=== PATIENT | male | born 1985 | race Caucasian/White ===

== ENCOUNTER 2019-05-09 00:23 | Emergency (ER) | payer OTHER ==
--- NOTE | 2019-05-13 17:34 | EKG ---
Test Reason : Blood Pressure : / mmHG Vent. Rate : 068 BPM Atrial Rate : 068 BPM P-R Int : 144 ms QRS Dur : 080 ms QT Int : 376 ms P-R-T Axes : 035 029 017 degrees QTc Int : 399 ms Normal sinus rhythm Normal ECG Confirmed by ODELL FERNANDEZ M.D. ([id number]), supervising editor news reel ARLENE BOURGEOIS ([id number]) on 05/13/2019 5:33:55 PM Referred By: REBECCA Confirmed By:ODELL FERNANDEZ M.D.
== END 2019-05-09 00:57 | disposition home or self-care (01) ==
LOC: ERS 00:23 → EEVIPCON 00:23 → ERS 00:57
DX: T75.4XXA Electrocution, initial encounter (principal); J45.909 Unspecified asthma, uncomplicated
CPT/HCPCS: 93005

== ENCOUNTER 2020-04-20 10:55 | Emergency (ER) | payer OTHER ==
[2020-04-20 11:36] LABS: #Eosinphils 0.4 thou/uL (0.0-0.7); #Lymphocytes 2.4 thou/uL (1.20-3.40); #Monocytes 0.6 thou/uL (0.11-0.59); #Neutrophils 4.5 thou/uL (1.40-6.50); %Basophils 0.5 % (0.0-1.0); %Eosinophils 4.9 % (0.0-10.0); %Lymphocytes 30.6 % (21.0-51.0); Hemoglobin 14.8 g/dL (14.0-18.0); Mean Corpuscular Hemoglobin 32.4 pg (27.0-31.0); Mean Corpuscular Volume 92.7 fL (78.0-98.0); Mean Platelet Volume 6.5 fL (7.4-10.4); Platelet Count 294 thou/uL (130-400); RBC Distribution Width 11.3 % (11.5-14.5); Red Blood Cell (RBC) Count 4.57 mill/uL (4.70-6.10)
[2020-04-20 11:58] LABS: ALT (SGPT) 29 U/L (8-55); AST (SGOT) 21 U/L (5-34); Albumin 4.8 g/dL (3.5-5.0); Alkaline Phosphatase 73 U/L (40-110); Anion Gap 16 mmol/L (10-20); BUN (Urea Nitrogen) 18 mg/dL (8.9-20.6); Bilirubin, Total 0.6 mg/dL (0.2-1.2); CK (CPK) 214 U/L (30-200); Calc. Creatinine Clearance 0 mL/min (70-130); Calcium 9.3 mg/dL (7.8-10.44); Carbon Dioxide 27 mmol/L (22-29); Chloride 103 mmol/L (98-107); Glucose 77 mg/dL (70-105); Lipase 23 U/L (8-78); Potassium 3.7 mmol/L (3.5-5.1); Protein, Total 7.8 g/dL (6.0-8.3); Sodium 142 mmol/L (136-145)
--- NOTE | 2020-04-20 12:03 | RAD ---
PORTABLE CHEST: Date: 04/20/2020 PROVIDED CLINICAL HISTORY: Palpitations and chest pressure. FINDINGS: Cardiac silhouette appears prominent, likely at least partially on the basis of portable technique. N o focal consolidation, pleural fluid, or pneumothorax apparent. IMPRESSION: No evidence for an acute cardiopulmonary process. POS: [facility]
[2020-04-20 13:42] LABS: Troponin I Less than 0.010 ng/mL (< 0.028)
== END 2020-04-20 14:02 | disposition home or self-care (01) ==
LOC: ERS 10:55
DX: R00.2 Palpitations (principal); J45.909 Unspecified asthma, uncomplicated; Z79.51 Long term (current) use of inhaled steroids
CPT/HCPCS: 36415; 71045; 80053; 82550; 83690; 83880; 84443; 84484; 85025; 85379; 93005

== ENCOUNTER → 2020-12-18 | Day surgery (SDC) | payer MEDICARE ==
[2020-12-19 00:33] LABS: SARS-CoV-2 NAA Rapid Test Not Detected (NotDetected)
== END ==
LOC: ER/OP 22:35
PROVIDERS: ATTEND Family Medicine
DX: Z20.822 Contact with and (suspected) exposure to COVID-19 (principal)
CPT/HCPCS: U0002